=== PATIENT | male | born 1950 | race Caucasian/White ===

== ENCOUNTER 2018-01-15 10:16 | Emergency (ER) | payer MEDICARE, OTHER ==
[~2018-01-15] VITALS: Ht 157.5 cm; Wt 44.0 kg
[2018-01-15 10:34] VITALS: BP 138/73
--- NOTE | 2018-01-15 10:44 | PHYS DOC ---
Adult General Chief Complaint Chief Complaint: BACK PAIN OR INJURY [facility] HPI Patient is a 67 year old presents the ED complaining of back injury 2 days ago. Patient states that he was lifting his dog up on the bed and felt a pull in his lower back. Discussed the pain as sharp. Rates the pain as 8 out of 10. He has been taking ibuprofen at home without relief. Denies bowel/bladder changes, saddle anesthesia, inability to walk, abdominal pain, fever, chest pain , shortness of breath or nausea/vomiting. Review of Systems Review of Systems Constitutional: Denies fever or chills [] Eyes: Denies change in visual acuity, redness, or eye pain [] HENT: Denies nasal congestion or sore throat [] Respiratory: Denies cough or shortness of breath [] Cardiovascular: No additional information not addressed in HPI [] GI: Denies abdominal pain, nausea, vomiting, bloody stools or diarrhea [] : Denies dysuria or hematuria [] Musculoskeletal: Complains of back pain. Denies joint pain [] Integument: Denies rash or skin lesions [] Neurologic: Denies headache, focal weakness or sensory changes [] All other systems were reviewed and found to be within normal limits, except as documented in this note. Current Medications Current Medications Current Medications Medications (Trade) Dose Ordered Sig/Natanael Start Time Stop Time Status Last Admin Dose Admin Acetaminophen/ Hydrocodone Bitart (Lortab 5/325) 1 tab 1X ONCE 01/15/18 10:45 01/15/18 10:46 DC 01/15/18 10:44 1 TAB Allergies Allergies Allergies Coded Allergies Type Severity Reaction Last Updated Verified No Known Drug Allergies 01/15/18 No Physical Exam Physical Exam Constitutional: Well developed, well nourished, no acute distress, non-toxic appearance. [] HENT: Normocephalic, atraumatic Eyes: PERRLA, EOMI, conjunctiva normal, no discharge. [] Neck: Normal range of motion, no tenderness, supple, no stridor. [] Cardiovascular:Heart rate regular rhythm, no murmur [] Lungs & Thorax: Bilateral breath sounds clear to auscultation [] Abdomen: Bowel sounds normal, soft, no tenderness, no masses, no pulsatile masses. [] Skin: Warm, dry, no erythema, no rash. [] Back: mild lumbar paraspinal tenderness, no overlying skin changes. FROM. NV intact. no CVA tenderness. [] Extremities: No tenderness, no cyanosis, no clubbing, ROM intact, no edema. [] Neurologic: Alert and oriented X 3, normal motor function, normal sensory function, no focal deficits noted. [] Psychologic: Affect normal, judgement normal, mood normal. [] Current Patient Data Vital Signs Vital Signs Date Time Temp Pulse Resp B/P (MAP) Pulse Ox O2 Delivery O2 Flow Rate FiO2 01/15/18 10:34 98.1 76 18 138/73 (94) 97 Room Air 98.1 EKG EKG [] Radiology/Procedures Radiology/Procedures PROCEDURE: LUMBAR SPINE 2-3V Lumbar spine radiograph January 15, 2018 INDICATION: Low back pain. COMPARISON: Lumbar spine radiograph March 16, 2014. TECHNIQUE: 3 views of the lumbar spine are provided. FINDINGS: There is minimal dextroconvex curvature of the lumbar spine which may be positional. There are 5 nonrib-bearing lumbar type vertebral bodies. Transverse processes appear intact. Vertebral body heights are maintained. There is mild anterior wedging of T12 which appears chronic. There is moderate anterior marginal osteophytosis. There is mild to moderate facet arthropathy. Mild disc height loss is identified at L1-L2 and L2-L3. There is minimal retrolisthesis of L2 on L3 and minimal anterolisthesis of L3 on L4. Atherosclerotic changes of the abdominal aorta are present. IMPRESSION: There is minimal retrolisthesis of L2 on L3 and minimal anterolisthesis of L3 on L4. This may be marginally progressed since the prior examination from March 16, 2014. No acute fracture is visualized.[] Course & Med Decision Making Course & Med Decision Making Pertinent Labs and Imaging studies reviewed. (See chart for details) []Discussed imaging findings with patient. Patient's pain improved. States he is much better. Patient able to ambulate without assistance. No focal neural deficit. Discussed follow-up with orthopedics if pain persists. Provided contact information/education. Discussed reasons to return to the ED. Patient understands and agrees with plan. Dragon Disclaimer Dragon Disclaimer This electronic medical record was generated, in whole or in part, using a voice recognition dictation system. Departure Departure Impression: Primary Impression: Back pain Additional Impression: Muscle strain Disposition: 01 HOME, SELF-CARE Condition: IMPROVED Referrals: BRY GONZALEZ MD (PCP) Patient Instructions: Back Pain, Adult, Muscle Strain Scripts Hydrocodone/Apap 5-325 (NORCO 5-325 TABLET) 1 Each Tablet 1 TAB PO BID for 3 Days, #6 TAB Prov: REZA ROSARIO 01/15/18 Problem Qualifiers REZA ROSARIO Jan 15, 2018 10:44
[2018-01-15] MEDS ORDERED: HYDROcodone/APAP 5/325MG 1 TAB TABLET PO ONE (10:45)
--- NOTE | 2018-01-15 11:37 | RAD ---
Lumbar spine radiograph January 15, 2018 INDICATION: Low back pain. COMPARISON: Lumbar spine radiograph March 16, 2014. TECHNIQUE: 3 views of the lumbar spine are provided. FINDINGS: There is minimal dextroconvex curvature of the lumbar spine which may be positional. There are 5 nonrib-bearing lumbar type vertebral bodies. Transverse processes appear intact. Vertebral body heights are maintained. There is mild anterior wedging of T12 which appears chronic. There is moderate anterior marginal osteophytosis. There is mild to moderate facet arthropathy. Mild disc height loss is identified at L1-L2 and L2-L3. There is minimal retrolisthesis of L2 on L3 and minimal anterolisthesis of L3 on L4. Atherosclerotic changes of the abdominal aorta are present. IMPRESSION: There is minimal retrolisthesis of L2 on L3 and minimal anterolisthesis of L3 on L4. This may be marginally progressed since the prior examination from March 16, 2014. No acute fracture is visualized. Electronically signed by: Rupali Cagle MD (01/15/2018 11:33 AM) [id number]
[2018-01-15] MEDS ORDERED: HYDR-971 PO (11:41)
== END 2018-01-15 11:49 | disposition home or self-care (01) ==
LOC: ER 10:16
DX: S39.012A Strain of muscle, fascia and tendon of lower back, initial encounter (principal); X50.9XXA Other and unspecified overexertion or strenuous movements or postures, initial encounter; Y93.89 Activity, other specified; Y99.8 Other external cause status; Y92.89 Other specified places as the place of occurrence of the external cause
CPT/HCPCS: 72100; 99284

== ENCOUNTER 2018-03-17 13:02 | Emergency (ER) | payer OTHER ==
[~2018-03-17] VITALS: Ht 160 cm; Wt 44.0 kg
[~2018-03-17 13:02] MED LIST: HYDR-971 PO
[2018-03-17 13:27] VITALS: BP 141/88
[2018-03-17] MEDS ORDERED: NEOMY/BACITR/POLYMYXIN OINT PACKET. TP ONE (14:00)
[2018-03-17] MEDS ORDERED: MUPI22OI2 TP (14:01)
--- NOTE | 2018-03-17 14:03 | PHYS DOC ---
Past Medical History Past Medical History: Other Additional Past Medical Histor: OSTEOARTHRITIS Past Surgical History: No Surgical History Alcohol Use: None Drug Use: None Adult General Chief Complaint Chief Complaint: LACERATION/AVULSION HPI HPI Patient is a 67 year old who presents to the emergency room with complaints of multiple avulsions to the right side of his scalp after his chainsaw kicked back and hit him in the head. Patient denies any loss of consciousness, nausea, vomiting, vision changes, head, or neck pain. He states that the area is not tender to touch. He reports his last tetanus shot was within the last 5 years. Review of Systems Review of Systems Constitutional: Denies fever or chills [] Eyes: Denies change in visual acuity, redness, or eye pain [] Musculoskeletal: Denies back pain or neck pain Integument: reports multiple avulsions to right side of scalp Neurologic: Denies headache, focal weakness or sensory changes [] All other systems were reviewed and found to be within normal limits, except as documented in this note. Allergies Allergies Allergies Coded Allergies Type Severity Reaction Last Updated Verified No Known Drug Allergies 01/15/18 No Physical Exam Physical Exam Constitutional: Well developed, well nourished, no acute distress, non-toxic appearance. [] HENT: Normocephalic, atraumatic, bilateral external ears normal, oropharynx moist, no oral exudates, nose normal, no palpable deformity or crepitus of R side of scalp [] Eyes: PERRLA,conjunctiva normal, no discharge. [] Neck: Normal range of motion, no tenderness, supple, no stridor. [] Skin: Warm, dry, no erythema, multiple avulsions and abrasions to R side of scalp, nontender to palpation Neurologic: Alert and oriented X 3, normal motor function, normal sensory function, no focal deficits noted. [] Psychologic: Affect normal, judgement normal, mood normal. [] Current Patient Data Vital Signs Vital Signs Date Time Temp Pulse Resp B/P (MAP) Pulse Ox O2 Delivery O2 Flow Rate FiO2 03/17/18 13:27 97.9 98 18 141/88 (105) 97 Room Air 97.9 EKG EKG [] Radiology/Procedures Radiology/Procedures [] Course & Med Decision Making Course & Med Decision Making Pertinent Labs and Imaging studies reviewed. (See chart for details) Dx: Right scalp abrasions and avulsions. Wounds were cleansed by Skye SOSA and antibiotic ointment and bandage was applied. Rx for mupirocin ointment written, wound care instructions given. PT advised to return to ER for increased pain, fever, drainage, dizziness, or vision changes. follow up with PCP in 1-2 days for wound recheck. Patient verbalized an understanding of home care, medications, follow-up, and return to ED instructions and was in agreement with the plan of care. [] Dragon Disclaimer Dragon Disclaimer This electronic medical record was generated, in whole or in part, using a voice recognition dictation system. Departure Departure Impression: Primary Impression: Avulsion of scalp, initial encounter Additional Impression: Abrasion, scalp w/o infection Disposition: 01 HOME, SELF-CARE Condition: STABLE Referrals: BRY GONZALEZ MD (PCP) Patient Instructions: Deep Skin Avulsion Additional Instructions: Fill prescription and use as directed. Keep the affected area clean and dry. Apply antibiotic ointment and a clean bandage to the area twice daily and as needed. Follow up with your primary care doctor in 1-2 days for wound recheck. May take tylenol or ibuprofen as needed for pain. Return to the ER if your symptoms worsen. Scripts Mupirocin (MUPIROCIN OINTMENT) 22 Gm Oint...g. 1 PILY TP BID for WOUND CARE for 7 Days, #1 TUBE 0 Refills Prov: ALEX MISTRY APRN 03/17/18 Problem Qualifiers ALEX MISTRY APRN Mar 17, 2018 14:03
== END 2018-03-17 14:26 | disposition home or self-care (01) ==
LOC: ER 13:02
DX: S08.0XXA Avulsion of scalp, initial encounter (principal); M19.90 Unspecified osteoarthritis, unspecified site; W31.89XA Contact with other specified machinery, initial encounter; Y93.89 Activity, other specified; Y92.89 Other specified places as the place of occurrence of the external cause; Y99.8 Other external cause status
CPT/HCPCS: 99283